=== PATIENT | female | born 1975 | race Caucasian/White ===

== ENCOUNTER 2018-09-29 15:29 | Outpatient (CLI) | payer OTHER | END 2018-09-29 21:18 | disposition home or self-care (01) | LOC: SMA 15:29 | PROVIDERS: ATTEND Internal Medicine | DX: Z12.31 Encounter for screening mammogram for malignant neoplasm of breast (principal) | CPT/HCPCS: 77067 ==

== ENCOUNTER 2018-10-07 08:25 | Outpatient (CLI) | payer OTHER | END 2018-10-07 21:05 | disposition home or self-care (01) | LOC: SUS 08:25 | DX: R92.2 Inconclusive mammogram (principal) | CPT/HCPCS: 76642 ==

== ENCOUNTER 2019-10-26 09:10 | Outpatient (CLI) | payer OTHER | END 2019-10-26 20:13 | disposition home or self-care (01) | LOC: SMA 09:10 | DX: R92.8 Other abnormal and inconclusive findings on diagnostic imaging of breast (principal); R21 Rash and other nonspecific skin eruption; Z98.82 Breast implant status | CPT/HCPCS: 76641; 77066 ==